=== PATIENT | male | born 1950 | race African-American/Black ===

== ENCOUNTER 2017-01-27 11:45 | Emergency (ER) | payer MEDICARE, OTHER ==
[~2017-01-27] VITALS: Ht 175.3 cm; Wt 79.4 kg
[~2017-01-27 11:45] MED LIST: AFRIN NASAL SPR30 ML NASAL; MIRTAZAPINE15 MG ORAL
[2017-01-27 12:27] VITALS: BP 116/73
[2017-01-27] MEDS ORDERED: Lidocaine 1% 10mg/ml/Epi 0.005mg/ml 30ml vial INJ ONE (12:30)
[2017-01-27] MEDS ORDERED: Bacitracin Oint UD TOPIC ONE (12:30)
--- NOTE | 2017-01-27 12:30 | Emergency Room Report ---
History of Present Illness General Chief Complaint: Skin Rash/Abscess Source: Patient (ROBERT ALVAREZ) Present Illness HPI The patient is a 66-year-old male presenting with left shoulder pain which began 2 weeks prior. The patient admits to injecting heroin into the shoulder. he noticed pain and swelling which has been worsening. Pain is now an 8/10 dull ache it is worse with movement and touch. Pt denies radiating pain. Pt denies N, V, F, chills, numbness/tingling, SOB, CP, diaphoresis (ROBERT ALVAREZ) Allergies: Coded Allergies: PENICILLINS (Unverified Allergy, Severe, Anaphylaxis, 12/04/14) Patient History Past Medical History: see triage record Pertinent Family History: none Social History: Reports: drug use Reviewed Nursing Documentation: PMH: Agreed, PSxH: Agreed (ROBERT ALVAREZ) Nursing Documentation-PMH Past Medical History: No History, Except For (ROBERT ALVAREZ) Review of Systems All Other Systems: negative except mentioned in HPI (ROBERT ALVAREZ) Physical Exam Vital Signs Date Time Temp Pulse Resp B/P Pulse Ox O2 Delivery O2 Flow Rate FiO2 01/27/17 12:17 99.0 62 16 116/73 99 Room Air Sp02 EP Interpretation: reviewed, normal General Appearance: no apparent distress, alert, GCS 15, non-toxic Head: normocephalic, atraumatic Eyes: bilateral eye PERRL, bilateral eye normal inspection ENT: hearing grossly normal, normal pharynx, no angioedema, normal voice Respiratory: chest non-tender, lungs clear, normal breath sounds, speaking full sentences Cardiovascular #1: regular rate, rhythm, no edema Genitourinary: normal inspection, no CVA tenderness Musculoskeletal: digits/nails normal, normal range of motion, tender - TTP over L lateral shoulder Neurologic: alert, oriented x3, responsive, motor strength/tone normal, sensory intact, speech normal Psychiatric: judgement/insight normal, memory normal, mood/affect normal, no suicidal/homicidal ideation Reflexes: 3+ bicep (R), 3+ bicep (L), 3+ tricep (R), 3+ tricep (L), 3+ knee (R) , 3+ knee (L) Skin: other - There is a 3cm in diameter indurated abscess of L lateral deltoid. Not fluctuant. Lymphatic: no adenopathy (ROBERT ALVAREZ) Procedures Incision and Drainage Incision and Drainage : Consent: Verbal Site: L shoulder Blade Size: 11 I & D Procedure: betadine prep, sterile drapes applied, sterile dressing applied Wound Location: upper extremity Wound's Depth, Shape: superficial Wound Length (cm): 3 Wound Explored: contaminated Irrigated w/ Saline (ccs): 100 Anesthesia: 1% Lidocaine, Lidocaine w/ Epi Volume Anesthetic (ccs): 3 Splint Applied?: No Sling Applied?: No Patient Tolerated: Well Complications: None (ROBERT ALVAREZ) Medical Decision Making PA Attestation Dr. Jeffrey is my supervising physician. Patient management was discussed with my supervising physician (ROBERT ALVAREZ) Medicare Attestation The history of Emir Henry has been reviewed and management options for him have been examined and discussed by Jose Jeffrey. I have personally examined and interviewed the patient. (JOSE JEFFREY M.D.) Diagnostic Impression: Primary Impression: Abscess ER Course The patient is a 66-year-old male presenting with left shoulder pain which began 2 weeks prior. Differential diagnoses considered but not limited to: abscess, cellulitis, insect bite PE: vitals WNL. NAD There is a 3cm in diameter indurated abscess of L lateral deltoid. Not fluctuant. Full AROM of shoulder. TTP. No surrounding erythema. Betadine prep was used to clean the skin and surrounding area. One percent lidocaine without epinephrine was used to anesthetize the are of planned incision. A #11 blade was used to make an incision in the central area of fluctuance approximately 1/3 the size of the diameter of the abcess. Once the incision was made, purulent material was expressed with blood. Blunt dissection was then used to release loculations and expressed more purulent material. Once only blood appeard to be expressed from the incision, normal saline was used to irrigate the inside of the abscess. The wound was then cleaned and sterile dressing applied with bacitracin. The patient to be discharged home with a prescription for Keflex and Bactrim. ER precautions are given. Patient will continue to keep the area clean and dry (ROBERT ALVAREZ P.A.) Last Vital Signs Date Time Temp Pulse Resp B/P Pulse Ox O2 Delivery O2 Flow Rate FiO2 01/27/17 12:17 99.0 62 16 116/73 99 Room Air Status: improved (ROBERT ALVAREZ P.A.) Disposition: HOME, SELF-CARE Condition: Improved Scripts Trimethoprim/Sulfamethoxazole 160/800* (BACTRIM DS TABLET*) 1 Each Tablet 1 TAB ORAL TWICE A DAY, #14 TAB Prov: ROBERT ALVAREZ P.Vida 01/27/17 Cephalexin* (KEFLEX*) 500 Mg Capsule 500 MG ORAL EVERY 12 HOURS, #14 CAP 0 Refills Prov: ROBERT ALVAREZ.A. 01/27/17 ROBERT ALVAREZ Jan 27, 2017 12:30 JOSE JEFFREY M.D. Jan 30, 2017 08:56
[2017-01-27] MEDS ORDERED: BACTRIM DS TAB1 EAC1 ORAL (13:10)
[2017-01-27] MEDS ORDERED: CEPHALEXIN500 MG ORAL (13:10)
[2017-01-27 13:49] VITALS: BP 116/73
== END 2017-01-27 13:55 | disposition home or self-care (01) ==
LOC: EMR 13:03
DX: L02.414 Cutaneous abscess of left upper limb (principal); Z88.0 Allergy status to penicillin
CPT/HCPCS: 10060

== ENCOUNTER 2017-01-31 14:31 | Emergency (ER) | payer MEDICARE, OTHER ==
[~2017-01-31] VITALS: Ht 172.7 cm; Wt 77.1 kg
[~2017-01-31 14:31] MED LIST changes: +BACTRIM DS TAB1 EAC1 ORAL; +CEPHALEXIN500 MG ORAL
[2017-01-31 15:03] VITALS: BP 107/70
[2017-01-31] MEDS ORDERED: Bacitracin Oint UD TOPIC ONE (15:15)
[2017-01-31] MEDS ORDERED: Lidocaine 1% MPF 10mg/ml 5ml INJ ONE (15:15)
[2017-01-31] MEDS ORDERED: CEPHALEXIN500 MG ORAL (16:13)
[2017-01-31] MEDS ORDERED: BACTRIM DS TAB1 EAC1 ORAL (16:13)
[2017-01-31] MEDS ORDERED: IBUPROFEN600 MG ORAL (16:13)
[2017-01-31 16:22] VITALS: BP 113/84
--- NOTE | 2017-01-31 21:22 | Emergency Room Report ---
History of Present Illness General Chief Complaint: Skin Rash/Abscess Source: Patient Present Illness HPI The patient is a 66-year-old male presenting for left shoulder pain. The patient was seen in this emergency department one week prior for an abscess of the left shoulder. Incision and drainage was performed and the patient was placed on antibiotics. The patient states that swelling has returned and he has noticed discharge from the shoulder. Discharge described as bloody and yellow. The patient describes pain as an 8/10 dull sensation and is worse with touch. The patient denies radiating pain. Patient denies any numbness or tingling. Patient denies fever or chills. The patient does admit to injecting methamphetamine into this area. Patient denies any other symptoms Allergies: Coded Allergies: PENICILLINS (Unverified Allergy, Severe, Anaphylaxis, 12/04/14) Patient History Pertinent Family History: none Social History: Reports: drug use Reviewed Nursing Documentation: PMH: Agreed, PSxH: Agreed Nursing Documentation-PMH Past Medical History: No Stated History Review of Systems All Other Systems: negative except mentioned in HPI Physical Exam Vital Signs Date Time Temp Pulse Resp B/P Pulse Ox O2 Delivery O2 Flow Rate FiO2 01/31/17 14:55 98.6 57 14 107/70 98 Room Air Sp02 EP Interpretation: reviewed, normal General Appearance: no apparent distress, alert, GCS 15, non-toxic Head: normocephalic, atraumatic Eyes: bilateral eye PERRL, bilateral eye normal inspection ENT: hearing grossly normal, normal pharynx, no angioedema, normal voice Neck: full range of motion, supple/symm/no masses Musculoskeletal: back normal, gait/station normal, normal range of motion Neurologic: alert, oriented x3, responsive, motor strength/tone normal, sensory intact, speech normal Psychiatric: judgement/insight normal, memory normal, mood/affect normal, no suicidal/homicidal ideation Reflexes: 3+ bicep (R), 3+ bicep (L), 3+ tricep (R), 3+ tricep (L), 3+ knee (R) , 3+ knee (L) Skin: other - There is a fluctuant, erythematous, tender, 4 cm diameter mass. There is a white central head Lymphatic: no adenopathy Procedures Incision and Drainage Incision and Drainage : Consent: Verbal Site: L shoulder Blade Size: 11 I & D Procedure: betadine prep, sterile drapes applied, sterile dressing applied, gauze wick placed Wound Location: upper extremity Wound's Depth, Shape: superficial Wound Length (cm): 4 Wound Explored: contaminated Irrigated w/ Saline (ccs): 200 Anesthesia: 1% Lidocaine Volume Anesthetic (ccs): 4 Splint Applied?: No Sling Applied?: No Patient Tolerated: Well Complications: None Medical Decision Making PA Attestation Dr. Garcia is my supervising physician. Patient management was discussed with my supervising physician Diagnostic Impression: Primary Impression: Abscess ER Course The patient is a 66-year-old male presenting for left shoulder pain. Differential diagnoses considered but not limited to: abscess, cellulitis, insect bite PE: vitals WNL. NAD There is a fluctuant, erythematous, tender, 4 cm diameter mass. There is a white central head. Full AROM of shoulder. SILT. No DC or bleeding. Betadine prep was used to clean the skin and surrounding area. One percent lidocaine without epinephrine was used to anesthetize the are of planned incision. A #11 blade was used to make an incision in the central area of fluctuance approximately 1/3 the size of the diameter of the abcess. Once the incision was made, purulent material was expressed with blood. Blunt dissection was then used to release loculations and expressed more purulent material. Once only blood appeared to be expressed from the incision, normal saline was used to irrigate the inside of the abscess. The wound was packed with iodine gauze. The wound was then cleaned and sterile dressing applied. The patient will return to the emergency department for packing removal. ER precautions are given. Patient given a prescription for Keflex and Bactrim. Last Vital Signs Date Time Temp Pulse Resp B/P Pulse Ox O2 Delivery O2 Flow Rate FiO2 01/31/17 16:22 98.6 79 15 113/84 99 Room Air Status: improved Disposition: HOME, SELF-CARE Condition: Improved Scripts Cephalexin* (KEFLEX*) 500 Mg Capsule 500 MG ORAL EVERY 12 HOURS, #14 CAP 0 Refills Prov: TERZIAN,ROBERT P.A. 01/31/17 Trimethoprim/Sulfamethoxazole 160/800* (BACTRIM DS TABLET*) 1 Each Tablet 1 TAB ORAL TWICE A DAY, #14 TAB Prov: TERZIAN,ROBERT P.A. 01/31/17 Ibuprofen* (MOTRIN*) 600 Mg Tablet 600 MG ORAL Q8H Y for For Pain, #30 TAB 0 Refills Prov: ROBERT ALVAREZ 01/31/17 Referrals: NON PHYSICIAN (PCP) Patient Instructions: Abscess Additional Instructions: I discussed my findings with the patient. All questions and concerns have been answered. Treatment and medication compliance have been addressed. I advised the patient that they need to follow up with PMD in 3-5 days. Return to ED if symptoms worsen, new symptoms arise, or if needed for any reason. Patient verbalized understanding of discharge instructions. The patient is advised he needs to return in 2 days for packing removal and wound check. ROBERT ALVAREZ Jan 31, 2017 21:22
== END 2017-01-31 16:22 | disposition home or self-care (01) ==
LOC: EMR 15:30
DX: L02.414 Cutaneous abscess of left upper limb (principal); F15.10 Other stimulant abuse, uncomplicated; Z88.0 Allergy status to penicillin
CPT/HCPCS: 10060

== ENCOUNTER 2017-02-02 13:56 | Emergency (ER) | payer MEDICARE, OTHER ==
[~2017-02-02] VITALS: Ht 172.7 cm; Wt 77.1 kg
[~2017-02-02 13:56] MED LIST changes: +IBUPROFEN600 MG ORAL
[2017-02-02] MEDS ORDERED: Bactrim DS (160mg/800mg) tab ORAL ONE (14:15)
[2017-02-02 14:18] VITALS: BP 93/60
--- NOTE | 2017-02-02 14:18 | Emergency Room Report ---
History of Present Illness General Chief Complaint: Wound Recheck/Suture Removal Source: Patient Present Illness HPI 66-year-old male presents emergency department for wound check and packing removal. Patient states he had an abscess on the left upper arm that was drained and packed 3 days ago. Patient also states that he has not been taking his antibiotic medication as prescribed because he never filled his medications. Patient states that he did not want to pay his co-pay. he denies nausea, vomiting, fevers, chills. Patient states the abscess occurred due to drug use. Patient reports history of abscesses in the past. Patient denies erythema states that the wound has been draining . Denies pain at this time. Denies CP, Palpitations, LOC, AMS, dizziness, Changes in Vision, Sensation, paresthesias, or a sudden severe headache. Allergies: Coded Allergies: PENICILLINS (Unverified Allergy, Severe, Anaphylaxis, 12/04/14) Patient History Past Medical History: see triage record Past Surgical History: none Pertinent Family History: none Social History: Reports: drug use Immunizations: UTD Reviewed Nursing Documentation: PMH: Agreed, PSxH: Agreed Nursing Documentation-PMH Past Medical History: No Stated History Review of Systems All Other Systems: negative except mentioned in HPI Physical Exam Vital Signs Date Time Temp Pulse Resp B/P Pulse Ox O2 Delivery O2 Flow Rate FiO2 02/02/17 14:03 97.7 49 14 93/60 99 Room Air Sp02 EP Interpretation: reviewed, normal General Appearance: no apparent distress, alert, GCS 15, non-toxic Head: normocephalic, atraumatic Eyes: bilateral eye PERRL, bilateral eye normal inspection ENT: hearing grossly normal, normal pharynx, no angioedema, normal voice Neck: full range of motion, supple/symm/no masses Respiratory: chest non-tender, lungs clear, normal breath sounds, speaking full sentences Cardiovascular #1: regular rate, rhythm, no edema Gastrointestinal: normal bowel sounds, non tender, soft, no guarding, no rebound Rectal: deferred Genitourinary: normal inspection, no CVA tenderness Musculoskeletal: back normal, gait/station normal, normal range of motion, tender - TTP about the area that was recently I & D. Neurologic: alert, oriented x3, responsive, motor strength/tone normal, sensory intact, speech normal Psychiatric: judgement/insight normal, memory normal, mood/affect normal, no suicidal/homicidal ideation Skin: normal color, no rash, warm/dry, well hydrated, other - recently I & D'd abscess in the deltoid area of the left UE, there is mild erythema noted, and TTP about the abscess, currently there is wound packing that is draining. Lymphatic: no adenopathy Medical Decision Making PA Attestation Dr. Gustafson is my supervising Physician whom patient management has been discussed with. Diagnostic Impression: Primary Impression: Encounter for wound re-check ER Course 56-year-old male presents emergency department for wound check and packing removal. Patient states he had an abscess on the left upper arm that was drained and packed 3 days ago. Patient also states that he has not been taking his antibiotic medication as prescribed because he never filled his medications. Patient states that he did not want to pay his co-pay. he denies nausea, vomiting, fevers, chills. Patient states the abscess occurred due to drug use. Patient reports history of abscesses in the past. Patient denies erythema states that the wound has been draining . Denies pain at this time Ddx considered but are not limited to cellulitis, abscess, cystic acne, necrotizing fasciitis, insect bite. Vital signs: are WNL, pt. is afebrile H&PE are most consistent with healing previously incised abscess of the left UE. ORDERS: none required at this time, the diagnosis is clinical ED INTERVENTIONS: -Bactrim PO -wound packing removed. -Sterile dressing applied. d/w pt. to the importance of taking po abx and to look for signs of infection . DISCHARGE: At this time pt. is stable for d/c to home. Will provide printed patient care instructions, and any necessary prescriptions. Care plan and follow up instructions have been discussed with the patient prior to discharge. Last Vital Signs Date Time Temp Pulse Resp B/P Pulse Ox O2 Delivery O2 Flow Rate FiO2 02/02/17 14:03 97.7 49 14 93/60 99 Room Air Disposition: HOME, SELF-CARE Condition: Stable Scripts Trimethoprim/Sulfamethoxazole 160/800* (BACTRIM DS TABLET*) 1 Each Tablet 1 TAB ORAL TWICE A DAY for 7 Days, #14 TAB Prov: Merle Rodriguez 02/02/17 Patient Instructions: Wound Check Additional Instructions: Take medications as directed. Follow up with PCP in 3-5 days Return sooner to ED if new symptoms occur, or current symptoms become worse. - Please note that this Emergency Department Report was dictated using [employer] administrator technology software, occasionally this can lead to erroneous entry secondary to interpretation by the dictation equipment. Merle Rodriguez Feb 02, 2017 14:18
[2017-02-02] MEDS ORDERED: BACTRIM DS TAB1 EAC1 ORAL (14:19)
[2017-02-02 15:01] VITALS: BP 93/60
== END 2017-02-02 15:01 | disposition home or self-care (01) ==
LOC: EMR 14:15
DX: L02.414 Cutaneous abscess of left upper limb (principal); Z48.01 Encounter for change or removal of surgical wound dressing; Z88.0 Allergy status to penicillin; F19.10 Other psychoactive substance abuse, uncomplicated
CPT/HCPCS: 99283

== ENCOUNTER 2017-10-19 13:53 | Emergency (ER) | payer MEDICARE, OTHER ==
[~2017-10-19] VITALS: Ht 172.7 cm; Wt 76.2 kg
[2017-10-19 14:00] VITALS: BP 125/70
--- NOTE | 2017-10-19 14:37 | Emergency Room Report ---
History of Present Illness General Chief Complaint: Skin Rash/Abscess Source: Patient, Medical Record Present Illness HPI 66-year-old male walked in with approximately 8 days of pain and swelling to posterior right shoulder and right buttock. Patient endorses regular injection of drugs. Patient states he has had had had abscesses before but denies any history of diabetes. Denies fever or chills. Denies any pus leakage from site. Allergies: Coded Allergies: PENICILLINS (Unverified Allergy, Severe, Anaphylaxis, 12/04/14) Patient History Past Medical History: none Past Surgical History: none Pertinent Family History: none Social History: Reports: drug use Immunizations: UTD Reviewed Nursing Documentation: PMH: Agreed, PSxH: Agreed Review of Systems All Other Systems: negative except mentioned in HPI Physical Exam Vital Signs Date Time Temp Pulse Resp B/P (MAP) Pulse Ox O2 Delivery O2 Flow Rate FiO2 10/19/17 13:55 98.2 76 20 117/62 99 Sp02 EP Interpretation: reviewed, normal General Appearance: normal inspection, well appearing, no apparent distress, alert, GCS 15, non-toxic Head: normocephalic, atraumatic Eyes: bilateral eye PERRL, bilateral eye EOMI ENT: normal ENT inspection, hearing grossly normal, normal voice Neck: normal inspection, full range of motion, supple, no bony tend Respiratory: normal inspection, lungs clear, normal breath sounds, no respiratory distress, no retraction, no wheezing Cardiovascular #1: regular rate, rhythm, no edema Gastrointestinal: normal inspection, normal bowel sounds, non tender, soft, no guarding, no hernia Genitourinary: no CVA tenderness Musculoskeletal: normal inspection, back normal, normal range of motion, Jeff' s Sign negative Neurologic: normal inspection, alert, oriented x3, responsive, insurance biller III-XII nml as tested, speech normal Psychiatric: normal inspection, judgement/insight normal, mood/affect normal Skin: normal inspection, normal color, other - right buttock: Large 6-8 cm area of fluctuance, tender to palpation, no overlying erythema. Right shoulder approximately 6 cm rectangular area of fluctuance, very tender to palpation. Not in joint space. Medical Decision Making Diagnostic Impression: Primary Impression: Abscess of right shoulder Additional Impressions: Abscess of right buttock IVDU (intravenous drug user) ER Course 66-year-old male with abscess to right shoulder and right buttock after regular intravenous drug use. Vital signs stable, afebrile. Not systemically ill. Given large size of abscesses, general surgery was consulted. Dr. Montgomery stated he was able to do incision and drainage of both abscesses in the ER, place packing and wound dressing. Surgeon noted that he had to separate muscles of shoulder in order to get to abscess beneath.Advised broad-spectrum PO Abx, patient stated able to change dressings himself at home, has option to followup with Dr Montgomery in his office as needed. Advised to STOP IVDU. Patient is to be discharged to home. Prescriptions given are keflex, bactrum Patient is instructed to follow up with their primary care doctor within 5 days. Strict return precautions discussed with patient such as fever, chills, worsening/severe pain, nausea, vomiting, which may indicate severe illness. Patient verbalizes understanding and agrees with plan. Please note that this Emergency Department Report was dictated using [employer] scaler helper technology software, occasionally this can lead to erroneous entry secondary to interpretation by the dictation equipment Last Vital Signs Date Time Temp Pulse Resp B/P (MAP) Pulse Ox O2 Delivery O2 Flow Rate FiO2 10/19/17 13:55 98.2 76 20 117/62 99 Status: improved Disposition: HOME, SELF-CARE Scripts Cephalexin* (KEFLEX*) 500 Mg Capsule 500 MG ORAL EVERY 6 HOURS for 7 Days, #28 CAP Prov: ARLET HAGAN M.D. 10/19/17 Trimethoprim/Sulfamethoxazole 160/800* (BACTRIM DS TABLET*) 1 Each Tablet 1 TAB ORAL TWICE A DAY for 7 Days, #14 TAB Prov: ARLET HAGAN M.D. 10/19/17 ARLET HAGAN M.D. Oct 19, 2017 14:37
[2017-10-19] MEDS ORDERED: CEPHALEXIN500 MG ORAL (16:23)
[2017-10-19] MEDS ORDERED: BACTRIM DS TAB1 EAC1 ORAL (16:23)
[2017-10-19 16:27] VITALS: BP 122/68
--- NOTE | 2017-10-19 18:47 | Consultation ---
History of Present Illness General Date patient seen: Oct 19, 2017 Time patient seen: 16:30 Chief Complaint: Skin Rash/Abscess Reason for Consultation: Abscess Present Illness HPI 66 year old male with history of active IVDA presents to ED with complaints of worsening right shoulder and right buttock pain. As per patient, he has recently injected heroin into those two areas and since has noted some discomfort. He believes it was 1-2 weeks ago but cannot recall exact date. He has monitored them since and states he hoped they would improve but pain progressively worsened and he noted area enlarging. He has history of multiple prior I&D for abscess after injections. As pain worsened and site enlarged he came to ed for evaluation. Denies n/v/f/c. otherwise well. Hx of Hep C. In ED bedside ultrasound done by ED physician and demonstrate a intramuscular right shoulder abscess and deep right buttock abscess. Right shoulder abscess large but simple. Right buttock abscess large, deep, and loculated. Allergies: Coded Allergies: PENICILLINS (Unverified Allergy, Severe, Anaphylaxis, 12/04/14) Medication History Scheduled Cephalexin* (Keflex*), 500 MG ORAL EVERY 12 HOURS Cephalexin* (Keflex*), 500 MG ORAL EVERY 12 HOURS Cephalexin* (Keflex*), 500 MG ORAL EVERY 6 HOURS Mirtazapine* (Remeron*), 15 MG ORAL BEDTIME, (Reported) Oxymetazoline HCl (Afrin), 2 SPRAYS NASAL TWICE A DAY Trimethoprim/Sulfamethoxazole 160/800* (Bactrim Ds Tablet*), 1 TAB ORAL TWICE A DAY Trimethoprim/Sulfamethoxazole 160/800* (Bactrim Ds Tablet*), 1 TAB ORAL TWICE A DAY Trimethoprim/Sulfamethoxazole 160/800* (Bactrim Ds Tablet*), 1 TAB ORAL TWICE A DAY Trimethoprim/Sulfamethoxazole 160/800* (Bactrim Ds Tablet*), 1 TAB ORAL TWICE A DAY Scheduled PRN Ibuprofen* (Motrin*), 600 MG ORAL Q8H PRN for For Pain Patient History History Provided By: Patient Healthcare decision maker Resuscitation status Advanced Directive on File Past Medical/Surgical History Past Medical/Surgical History: (1) Abscess Review of Systems Constitutional: Denies: no symptoms, see HPI, chills, sweats, fever, malaise, weakness, other Eye: Denies: no symptoms, see HPI, eye pain, blurred vision, tearing, double vision, nose pain, nose congestion, acuity changes, discharge, other ENT: Denies: no symptoms, see HPI, ear pain, ear discharge, nose pain, nose congestion, throat pain, throat swelling, mouth pain, hearing loss, nasal discharge, other Respiratory: Denies: no symptoms, see HPI, cough, orthopnea, shortness of breath, stridor, wheezing, READ, sputum, other Cardiovascular: Denies: no symptoms, see HPI, chest pain, edema, palpitations, syncope, PND, other Gastrointestinal: Denies: no symptoms, see HPI, abdominal pain, constipation, diarrhea, nausea, vomiting, melena, hematemesis, other Genitourinary: Denies: no symptoms, see HPI, discharge, dysuria, frequency, hematuria, pain, retention, incontinence, urgency, vag bleed/dc, other Musculoskeletal: Denies: no symptoms, see HPI, back pain, gout, joint pain, joint swelling, muscle pain, muscle stiffness, other Skin: Denies: no symptoms, see HPI, rash, change in color, change in hair/nails , dryness, lesions, other Psychiatric: Denies: no symptoms, see HPI, prior hx, anxiety, depressed feelings, emotional problems, SI, HI, hallucinations, other Neurological: Denies: no symptoms, see HPI, headache, numbness, paresthesia, seizure, tingling, tremors, focal weakness, syncope, dizziness, other Endocrine: Denies: no symptoms, see HPI, excessive sweating, flushing, intolerance to temperature, increased thirst, increased urine, unexplained weight loss, other Hematologic/Lymphatic: Denies: no symptoms, see HPI, anemia, blood clots, easy bleeding, easy bruising, swollen glands, diathesis, other Physical Exam General Appearance: WD/WN, no apparent distress, alert Lines, tubes and drains: peripheral HEENT: PERRL Neck: normal inspection Respiratory/Chest: normal breath sounds, no respiratory distress, no accessory muscle use Cardiovascular/Chest: normal peripheral pulses, normal rate Abdomen: normal bowel sounds, non tender, soft, no organomegaly, no mass Extremities: normal range of motion, non-tender, normal inspection, no calf tenderness Skin Exam: normal pigmentation Neurologic: alert, oriented x 3 Physical Exam Narrative Right shoulder posterior with 8cm x 7cm abscess with area of erythema and fluctuance. no drainage Right buttock lateral mid buttock abscess which is deep with area of induration , tenderness, and erythema. no drainage. Last 24 Hour Vital Signs Date Time Temp Pulse Resp B/P (MAP) Pulse Ox O2 Delivery O2 Flow Rate FiO2 10/19/17 16:27 98.2 80 18 122/68 100 Room Air 10/19/17 14:00 98.2 84 20 125/70 99 Room Air 10/19/17 13:55 98.2 76 20 117/62 99 Height (Feet): 5 Height (Inches): 8.00 Weight (Pounds): 168 Assessment/Plan Problem List: (1) Abscess Assessment & Plan: 66M IVDA with two large abscess at injection sites. Afebrile, HD stable, exam as above. Bedside ultrasound in ED demonstrates two large abscess as noted above. Unfortunately they are large and will require I&D GUSTAVO. Right shoulder abscess intra muscular and right buttock abscess deep. Risks benefits and alternatives discuss with patient in detail. Consent obtained. Plan to proceed with bedside I&D today. Will need packing and dressing changes daily/BID until wounds healed. patient expressed that he has done this prior and is comfortable with having his significant other help with dressings. He will need to be seen in the next few days to ensure healing well. He states that he will either go to his PCP or come see me in the office this week. ICD Codes: L02.91 - Cutaneous abscess, unspecified SNOMED: [id number] Status: stable Gregorio Swann Oct 19, 2017 18:47
--- NOTE | 2017-10-19 18:57 | Operative Note - PDOC ---
Operative Note Operative Note Date of Operation/Procedure: Oct 19, 2017 Pre-op Diagnosis: 1. right shoulder abscess 2. right buttock abscess Procedure: 1. Incision and drainage of right shoulder abscess 2. incision and drainage of right buttock abscess Post-op Diagnosis: 1. 8cm x 7cm intramuscular right shoulder abscess 2. 6cmx 4cm deep right buttock abscess Surgeon: Shree DC Anesthesia: local Specimen: yes - cultures sent for micro Complications: none Condition: stable Estimated Blood Loss: minimal Drains: none Implant(s) used?: No Indications for Procedure 66M with large intramuscular right shoulder abscess and large deep right buttock abscess after injection of heroin. Will require I&D at bedside which was performed today. Description of Procedure Patient was made comfortable in the ED on [facility]. Patient, procedure, and equipment was checked. Consent was obtained. Right shoulder and Right buttock were prepped and draped in standard surgical fashion. 1% lido with epi was infiltrated in proposed skin incision sites based on ultrasound findings. Fresh #11 scalpel was used to make skin incision over area of fluctuance in right posterior shoulder. 10cc of superficial purulent fluid was evacuated. the deltoid muscle was palpated and underlying fluid collection noted with manipulation. Fibers of muscle was and 20cc of purulent fluid was evacuated. 1L sterile normal saline was used to irrigate wound until clean. packing and dressings were applied. A skin incision was then made over the right buttock abscess as identified by ultrasound. Incision was carried down past dermis and blunt dissection over subcutaneous fat performed until large loculated abscess cavity identified 3-4 cm deep. 30-50cc purulent fluid evacuated. blunt dissection was performed to break up all loculations once complete 1L sterile normal saline was used to irrigate cavity. once complete and clean packing and dressings applied. Patient tolerated procedure very well without any complications. Patient expressed understanding of wound care with packing and dressings changes BID. He stated that he would prefer to return home today and will do wound care with his significant other. States that he is comfortable doing so given prior similar events. He states that he will return to his PCP or my office in 2-3 days for wound check. Gregorio Swann Oct 19, 2017 18:57
== END 2017-10-19 16:38 | disposition home or self-care (01) ==
LOC: EMR 15:12
DX: L02.413 Cutaneous abscess of right upper limb (principal); L02.31 Cutaneous abscess of buttock; F19.90 Other psychoactive substance use, unspecified, uncomplicated; Z88.0 Allergy status to penicillin
CPT/HCPCS: 99284

== ENCOUNTER → 2019-01-11 | Emergency (ER) | payer MEDICARE, OTHER ==
[~2019-01-11] VITALS: Ht 172.7 cm; Wt 77.1 kg
[~2019-01-11] MED LIST changes: +Bactrim-DS 1 tab ORAL ONE; +CEPHALEXIN500 M1 ORAL; +Clindamycin 150mg cap ORAL ONE; +Lidocaine 1% 10mg/ml/Epi 0.005mg/ml 30ml vial INJ ONE
[2019-01-11 10:07] VITALS: BP 121/73
--- NOTE | 2019-01-11 10:49 | NUR ---
ED Nurse Note: Pt. AAOx4. ambulatory. came in due to the abscess to right upper arm x 1 week per pt. painful to move arm. right arm swollen and reddened from upper arm that radiates down to mid forearm. good cms distally.
--- NOTE | 2019-01-11 10:50 | NUR ---
ED Nurse Note: obtained consent for incision and drainage of the abscess on the R upper arm
--- NOTE | 2019-01-11 22:02 | Emergency Room Report ---
History of Present Illness General Chief Complaint: Skin Rash/Abscess Source: Patient Present Illness HPI Patient presented for right shoulder pain and swelling after injection of heroin. Patient states he's been using seen [employer] grade. Denies fever or chest pain. Swelling had been present for several days.Patient reports having aspirated the area to try and attempt to relieve the pus but this had worsened. Allergies: Coded Allergies: PENICILLINS (Unverified Allergy, Severe, Anaphylaxis, 12/04/14) Patient History Past Medical History: see triage record Reviewed Nursing Documentation: PMH: Agreed; PSxH: Agreed Nursing Documentation-PMH Past Medical History: No History, Except For Review of Systems ENT: Denies: no symptoms, see HPI, ear pain, ear discharge, nose pain, nose congestion, throat pain, throat swelling, mouth pain, hearing loss, nasal discharge, other All Other Systems: negative except mentioned in HPI Physical Exam Vital Signs Date Time Temp Pulse Resp B/P (MAP) Pulse Ox O2 Delivery O2 Flow Rate FiO2 01/11/19 10:07 98.2 59 20 121/73 98 Room Air General Appearance: well appearing, no apparent distress, alert, GCS 15 Head: normocephalic, atraumatic ENT: hearing grossly normal, normal voice Neck: full range of motion, supple Respiratory: lungs clear, no respiratory distress, speaking full sentences Cardiovascular #1: normal peripheral pulses, regular rate, rhythm Gastrointestinal: normal inspection Musculoskeletal: swelling, other - fluctuant area to right upper extremity near deltoid Neurologic: normal inspection, alert, oriented x3, responsive, normal gait Psychiatric: normal inspection, mood/affect normal Skin: other - large fluctuance to right deltoid Procedures Incision and Drainage Incision and Drainage : Consent: Emergent Site: right shoulder Blade Size: 15 I & D Procedure: betadine prep, sterile drapes applied, sterile dressing applied Wound Location: upper extremity Wound's Depth, Shape: superficial Wound Length (cm): 2 Wound Explored: clean Anesthesia: Lidocaine w/ Epi Volume Anesthetic (ccs): 4 Patient Tolerated: Well Complications: None Progress Large amount of foul smelling purulent drainage. Medical Decision Making Diagnostic Impression: Primary Impression: Abscess Additional Impression: Heroin abuse ER Course Patient presented for skin rash. Differential diagnosis included was not limited to abscess, cellulitis, folliculitis, necrotizing fascitis. Patient has a benign exam and does not appear to require any further imaging or laboratory testing at this time. Patient is noted to have right upper extremity abscess. This was incised and drained a large amount of purulent material. Patient was given prescription for oral antibiotics. Patient shows no signs of systemic toxicity at this time. Patient was advised to have the wound rechecked in 2 days. He was advised to return if any fever or worsening of condition. Last Vital Signs Date Time Temp Pulse Resp B/P (MAP) Pulse Ox O2 Delivery O2 Flow Rate FiO2 01/11/19 10:07 98.2 59 20 121/73 98 Room Air Status: improved Disposition: HOME, SELF-CARE Condition: Stable Scripts Cephalexin* (CEPHALEXIN*) 500 Mg Tablet 500 MG ORAL EVERY 6 HOURS, #40 CAP Prov: Azael Gustafson MD 01/11/19 Trimethoprim/Sulfamethoxazole 160/800* (BACTRIM DS TABLET*) 1 Each Tablet 1 TAB ORAL TWICE A DAY, #14 TAB Prov: Azael Gustafson MD 01/11/19 Patient Instructions: Abscess Azael Gustafson MD Jan 11, 2019 22:02
== END | disposition home or self-care (01) ==
LOC: EMR 10:25
DX: L02.413 Cutaneous abscess of right upper limb (principal); F11.10 Opioid abuse, uncomplicated; Z88.0 Allergy status to penicillin
CPT/HCPCS: 99283